=== PATIENT | female | born 1980 | race Two or more races ===

== ENCOUNTER 2025-01-23 06:07 | Inpatient (IN) | payer MEDICARE, MEDICAID ==
[2025-01-19 10:53] LABS: Urine Bacteria None Seen /hpf (None Seen)
[2025-01-19 11:01] LABS: Basophils # (auto) 0.1 10 ^3/uL (0-0.2); Basophils % (auto) 0.6 % (0.0-2.0); Eosinophils # (auto) 0.3 10 ^3/uL (0-0.8); Eosinophils % (auto) 2.7 % (0.0-7.0); Hematocrit 39.7 % (36.0-46.0); Hemoglobin 13.4 g/dL (12.2-16.2); Lymphocytes # (auto) 1.9 10 ^3/uL (0.4-5.4); Lymphocytes % (auto) 20.1 % (10.0-50.0); Mean Corpuscular Hemoglobin 30.9 pg (28.0-32.0); Mean Corpuscular Hgb Conc. 33.7 g/dL (32.0-36.0); Mean Corpuscular Volume 91.7 fL (80.0-100.0); Monocytes # (auto) 0.5 10 ^3/uL (0-1.3); Monocytes % (auto) 5.7 % (0.0-12.0); Neutrophils # (auto) 6.7 10 ^3/uL (1.6-8.6); Neutrophils % (auto) 70.9 % (37.0-80.0); Platelet Count (auto) 290 10^3/uL (140-450); Red Blood Cells 4.33 10^6/uL (4.0-5.20); Red Cell Distribution Width 12.8 % (11.8-14.3); White Blood Cell 9.4 10^3/uL (4.4-10.8)
[2025-01-19 11:11] LABS: Urine Blood Negative /uL (Negative); Urine Clarity Clear (Clear); Urine Color Light-Yellow (Yellow); Urine Protein, UAD Negative (Negative); Urine Specific Gravity 1.019 (1.001-1.035); Urine Squamous Epithelial Cell None Seen /hpf (<5); Urine Urobilinogen Normal (Negative); Urine WBC < 1 /HPF (0-5)
[2025-01-19 11:14] LABS: INR 0.98 (0.9-1.15); Partial Thromboplastin Time 26.8 SEC (24.5-34.5); Prothrombin Time 10.4 sec (9.3-11.8)
[2025-01-19 11:27] LABS: Alkaline Phosphatase 67 U/L (46-116); Anion Gap 10 (5-15); Aspartate Aminotransferase 15 U/L (<34); BUN/Creatinine Ratio 14.1 (10.0-20.0); Bilirubin, Total 0.6 mg/dL (0.2-1.0); Blood Urea Nitrogen 11 mg/dL (9-23); Calcium 10.4 mg/dL (8.7-10.4); Carbon Dioxide 27 mmol/L (20-31); Chloride 106 mmol/L (98-107); Glucose 99 mg/dL (74-106); Potassium 4.1 mmol/L (3.5-5.1); Sodium 143 mmol/L (136-145); Total Protein 8.1 g/dL (5.7-8.2)
[2025-01-19 11:28] LABS: Alanine Aminotransferase < 9 U/L (7-40); Albumin 4.9 g/dL (3.2-4.8)
[~2025-01-23] VITALS: Ht 167.6 cm; Wt 101.2 kg
[~2025-01-23 06:07] MED LIST: ACET-1304 PO; HYDR-4491 OR
[2025-01-23] MEDS: ceFAZolin 2 GM/D5W50ml 50 ML IV ONE (06:12)
[2025-01-23] MEDS ORDERED: HYDROmorphone HCL 2 MG/ML VL/or syr ONE (06:35)
[2025-01-23] MEDS ORDERED: ONDANSETRON HCL 4 MG/2 ML VIAL ONE (06:35)
[2025-01-23] MEDS ORDERED: KETAMINE 50mg/ML 1ml syringe ONE (06:35)
[2025-01-23] MEDS ORDERED: LIDOCAINE 2% TOPICAL JELLY 5 ML URJT TOP ONE (06:35)
[2025-01-23] MEDS ORDERED: LIDOCAINE 1% INJ PF 5ML AMP ONE (06:35)
[2025-01-23] MEDS ORDERED: MIDAZOLAM HCL 2MG/2ML 2ml VIAL (1mg/ml) ONE (06:35)
[2025-01-23] MEDS ORDERED: EPINEPHrine HCL 1 MG/1 ML AMP ONE (06:35)
[2025-01-23] MEDS ORDERED: ROCURONIUM 10MG/ML 10ML VIAL IV ONE (06:35)
[2025-01-23] MEDS ORDERED: PROPOFOL 10 MG/ML 20 ML IV ONE ×3 (06:35→12:49)
[2025-01-23] MEDS ORDERED: fentaNYL CITRATE 100 MCG/2 ML VL ONE (06:35)
[2025-01-23] MEDS ORDERED: SODIUM CHLORIDE LOCK 50 ML ONE (06:35)
[2025-01-23] MEDS ORDERED: fentaNYL CITRATE 5 ML ONE ×2 (06:35→09:21)
[2025-01-23] MEDS: TRANEXAMIC ACID 20 ML ONE (06:53)
[2025-01-23] MEDS: levoFLOXacin 500MG 100 ML IV ONE (06:53)
[2025-01-23] MEDS ORDERED: MORPHINE SULFATE 4 MG/ML SYR/VIAL IV PRN (07:00)
[2025-01-23] MEDS ORDERED: HYDROmorphone HCL 2 MG/ML VL/or syr IV PRN (07:00)
--- NOTE | 2025-01-23 07:05 | DVHHP2 ---
History Allergies: Coded Allergies: NO KNOWN ALLERGIES (Unverified , 01/17/25) Chief Complaint: Patient complains of classic cervical stenosis symptoms including weekends, dropping items, having to shake her hands out while she drives. Headaches that are located behind her ears initially her shoulder pain started out as left shoulder pain and has progressively gotten worse now her right shoulder action hurts worse than her left shoulder. Two weeks ago she developed left hip pain and weakness and neuropathies to her left leg down to her foot making it difficult to walk. Patient arrives today for elective surgery with Dr Juan Barry cervical 4-7 anterior cervical diskectomy and fusion The risks/benefits/alternatives of surgery were explained to the patient in detail by Dr Juan Barry in her preop office visit, discussion included , stroke, paralysis, myocardial infarction, bleeding, infection, complications of anesthesia (dry mouth, sore throat, dental damage, respiratory depression, blindness), postoperative infection, incomplete relief of symptoms, recurrence of symptoms, damage to blood vessels, nerves and tendons, pulmonary embolism and possible need for repeat surgery in the future. Pain, damage to surrounding soft tissue structures, need for reoperation or future surgery, persistent pain/disability/deformity, bone graft collapse or extrusion of interbody device, instrumentation failure, need for instrumentation removal, dural tear, temporary or permanent nerve root damage, deep vein thrombosis, pulmonary embolism, were described to the patient in detail and the patient wishes to proceed. No guarantee of surgical outcome/improvement was implied. All of the questions were answered thoroughly and consents were obtained. Call with questions Danyelle Olson [facility] Orthopaedic Spine Surgery nurse practitioner For Dr Terrance Barry Patient was examined, chart reviewed, labs evaluated, and diagnostic studies and findings analyzed. Case was discussed with Dr. Juan Barry who formulated the plan of care. This medical document was created using an electronic medical record system with [employer] dictation system. Although this document has been carefully reviewed, there might still be some phonetic and typographical errors. These areas are purely typographical due to imperfections of the software programs, and do not reflect any compromise in the patient's medical care. Present Illness(Onset/Duration Cervical stenosis present for several years worsening over the last two weeks to now include her left hip and leg Noncontributory to case Exam Exam General Appearance: None, Normal HEENT: Normal ENT Inspection Neck: Limited Range of Motion (Bilateral shoulder pain and neck pain), Normal Inspection Respiratory: No Accessory Muscle Use, No Respiratory Distress Cardiovascular: No JVD, Other (Skin is pink warm and dry) Gastrointestinal: none, Other (No complaints of nausea or vomiting) Extremities: Normal capillary refill, Normal inspection, Normal range of motion, Non-tender, Other (Weak bilateral management coordinator strength) Neurologic: Headache, Motor Weakness (4/5 bilateral hands) Cerebellar Function: Normal (Patient states no complaints at this time with ambulation) Reflexes: None (No reports of hyperreflexia or increased sensation) Skin: Normal Color IVIS OLSON NP Jan 23, 2025 07:05
--- NOTE | 2025-01-23 07:07 | POSTOP ---
Post-Operative Note Post-Operative Note Preop Diagnosis cervical spinal stenosis with severe radiculopathy Postop Diagnosis: cervical spinal stenosis with severe radiculopathy Operation performed Cervical 4-7 anterior cervical diskectomy and fusion Specimen None Anesthesia: General Anesthesiologist: Dr. Tucker Blood Loss(fluid mgmt) See anesthesia record Tourniquet Time None Surgeon Dr Juan Barry Reed Press Feeder Lashell Crespo, STEV[employer] DOCK/ PIPE TURNER Implant 7 mm spacers x3 3.5 x 12 screws x6 Complications & Mgmt None Additional Remarks Disposition: -Pending -Discharge RX: -Follow up appointment: with Dr Barry on [phone] [place] [id number] -Pain: - IV pain meds post op day 1, with PO supplementation, goal is to progress weaning off IV medications and control pain with PO only. morphine 1mg q 4 hours (PAIN 7-10) - P.O. analgesics:Tylenol 650MG (PAIN 1-3) Heyworth 10/325 mg (PAIN 4-6) - Muscle relaxers scheduled administration. This is a beneficial medications for the incisional pain as it is mostly related to muscle spasms. Flexeril 10 mg TID - Cepacol throat lozenges as needed for sore throat -DVT PPX: -Hold all chemical DVT/ blood thinners for 14 days postoperatively -use mechanical DVT PPX such as SCD's, ambulation -Antibiotics Operative recommendations: -Postoperative dose:-Post operative antibiotics cefazolin 1 g IV piggyback every 8 hours x 48 hours total of 6 doses -Activity: -Pending PT evaluation and patients progression -Sit at side of bed for meals -Goal: Ambulate independently and safely (may use assistive devices if needed) -Brace: - [place] collar for comfort, -Medical Therapy goals: -Afebrile- Patient may develop a expected post operative fever by day 2-3, this may not be accompanied with a elevation in WBC. if fever develops: Acetaminophen for fever. Albuterol nebulizer Tx every 12 hours for 24 hours to facilitate adequate lung expansion and prevent development of atelectasis. -Euglycemic: bloods sugars under 130mmol/L for optimal healing -Normotensive: Avoid events of hypertension. This helps to keep post operative healing intact and avoids destabilization of beneficial hemostatic coagulation. Drains -Bulb drains: record output and characteristics of the drainage EVERY 6 HOURS- if there is no output indicate this by documenting 0ml output in note.. These will be to thumbprint compression unless otherwise ordered. Record output as well as amount in a note at least every 6 houtrs- more if indicated. Wound drainage is described by type, color, amount, and odor. Drainage can be 1 serous: Clear and thin, may be present in healing healthy wound. 2 serosanguineous containing blood may also be present and healthy healing wound 3. Sanguinous primarily blood 4. Purulent this is thick, white, and pus like. It may be indicated to give of a infection and should constitute a call to the provider immediately with the plan that the sample should be cultured. -Padilla: -DC in OR -Dressings -Anterior cervical patients: Initial surgical dressing may be reinforced if needed. If there is excessive bleeding, leaking, drainage in the bulb drain notify provider -Bowel management: -Colace 100mg bid -Diet: -Clear liquid diet and advance as patient tolerates within dietary limitations ( example: diabetic, Cardiac) -Incentive Spirometer: -10 x hour while awake, RN please educate and observe repeat demonstration, have IS at bedside POD #1 -X-rays: - none indicated at this time -Consults: -Physical Therapy evaluation, treatment recommendations, and discharge recommendations Call with questions Danyelle Crespo ACNP- Orthopaedic Spine Surgery nurse practitioner For Dr Terrance Barry Patient was examined, chart reviewed, labs evaluated, and diagnostic studies and findings analyzed. Case was discussed with Dr. Juan Barry who formulated the plan of care. This medical document was created using an electronic medical record system with [employer] dictation system. Although this document has been carefully reviewed, there might still be some phonetic and typographical errors. These areas are purely typographical due to imperfections of the software programs, and do not reflect any compromise in the patient's medical care. Date 01/23/25 Time 07:05 LASHELL CRESPO NP Jan 23, 2025 07:07
--- NOTE | 2025-01-23 07:15 | DVHPN2 ---
Progress Note - Surgical Date Seen: Jan 24, 2025 Post op day Post op day: 1 Subjective Patient reports: No new complaints, Feels better (Patient states that her vision has drastically improved, pain for the right hip has resolved, neck and shoulder pain has resolved) Review of Systems: HEENT:Normal, HEENT:Abnormal, CVS:Normal, RESPIRATORY:Normal, GI:Normal, :Normal, MSK:Abnormal (Patient pain for the hip, right which made it difficult for her to ambulate also complain of shoulder pain neck pain), NEURO:Abnormal (Cervical radiculopathy complaints) Objective Medications Current Medications Medications Dose Ordered Sig/Giuseppe Route Start Time Stop Time Status Last Admin Dose Admin Hydromorphone HCl 0.5 mg Q10M PRN IV 01/23/25 07:00 01/23/25 07:41 Morphine Sulfate 2 mg Q4H PRN IV 01/23/25 07:00 01/23/25 11:01 Hydromorphone HCl 0.25 mg Q10M PRN IV 01/23/25 07:00 01/23/25 07:31 Morphine Sulfate 1 mg Q30M PRN IV 01/23/25 07:42 01/23/25 09:43 Laboratory Laboratory Tests 01/19/25 10:49 Test 01/19/25 10:49 Range/Units Serum Glucose 99 74-106 mg/dL Examination: GENERAL:Normal, HEENT:Normal, NECK:Normal (Left-sided surgical site closed with Steri-Strips and Monocryl suture drain functioning, minimal output in the past 24 hours since surgery drain will be removed today), LUNGS:Normal, CVS:Normal, ABDOMEN:Normal, MSK:Normal (Patient ambulated out in whole twice with physical therapy), SKIN:Normal, NEURO:Normal (Patient reports great improvement in preoperative symptoms), :Normal Problem List/Assessment/Plan Problems: (1) Cervical stenosis of spinal canal (2) Postoperative pain after spinal surgery (3) Muscle spasms of neck Assessment and Plan Events of today Drain discontinued Patient able to ambulate in the hallway twice, reports improvement in right hip and leg pain Patient reports improvement in hand strength Improvement in bilateral shoulder and neck pain Patient also states that she has a very clear vision which was surprising to her, states her vision was blurry the day of surgery and had been prior Patient is progressing to discharge -Discharge RX: Flexeril and Lockney sent to patient's preferred pharmacy -Follow up appointment: with Dr Barry on his follow up date [id number] [facility] [address] [place] [address] -Pain: - IV pain meds post op day 1, with PO supplementation, goal is to progress weaning off IV medications and control pain with PO only. morphine 1mg q 4 hours (PAIN 7-10) - P.O. analgesics:Tylenol 650MG (PAIN 1-3) Lockney 10/325 mg (PAIN 4-6) - Muscle relaxers scheduled administration. This is a beneficial medications for the incisional pain as it is mostly related to muscle spasms. Flexeril 10 mg TID - Cepacol throat lozenges as needed for sore throat -DVT PPX: -Hold all chemical DVT/ blood thinners for 14 days postoperatively -use mechanical DVT PPX such as SCD's, ambulation -Antibiotics Operative recommendations: -Postoperative dose:-Post operative antibiotics cefazolin 1 g IV piggyback every 8 hours x 48 hours total of 6 doses -Activity: -Pending PT evaluation and patients progression -Sit at side of bed for meals -Goal: Ambulate independently and safely (may use assistive devices if needed) -Brace: - [place] collar for comfort, -Medical Therapy goals: -Afebrile- Patient may develop a expected post operative fever by day 2-3, this may not be accompanied with a elevation in WBC. if fever develops: Acetaminophen for fever. Albuterol nebulizer Tx every 12 hours for 24 hours to facilitate adequate lung expansion and prevent development of atelectasis. -Euglycemic: bloods sugars under 130mmol/L for optimal healing -Normotensive: Avoid events of hypertension. This helps to keep post operative healing intact and avoids destabilization of beneficial hemostatic coagulation. -Dressings -Anterior cervical patients: Initial surgical dressing may be reinforced if needed. If there is excessive bleeding, leaking, drainage notify provider -dressing can be changed by nursing staff if needed -Bowel management: -Colace 100mg bid -Diet: -Clear liquid diet and advance as patient tolerates within dietary limitations ( example: diabetic, Cardiac) -Incentive Spirometer: -10 x hour while awake, RN please educate and observe repeat demonstration, have IS at bedside POD #1 -X-rays: - none indicated at this time -Consults: -Physical Therapy evaluation, treatment recommendations, and discharge recommendations Call with questions Danyelle Olson ACNP- Orthopaedic Spine Surgery nurse practitioner For Dr Terrance Barry Patient was examined, chart reviewed, labs evaluated, and diagnostic studies and findings analyzed. Case was discussed with Dr. Juan Barry who formulated the plan of care. This medical document was created using an electronic medical record system with [employer] dictation system. Although this document has been carefully reviewed, there might still be some phonetic and typographical errors. These areas are purely typographical due to imperfections of the software programs, and do not reflect any compromise in the patient's medical care Plan discussed with Plan discussed with: Patient, Other (Dajuan RN extension [phone]) Visit Coding Surgery Date of Service if different f: Jan 23, 2025 Billing Provider: IVIS OLSON NP Surgery Visit Codes: NOT BILLABLE IVIS OLSON NP Jan 23, 2025 07:15
[2025-01-23] MEDS ORDERED: MORPHINE SULFATE INJ 2 MG/ml SYRG IV PRN ×2 (07:42→08:45)
[2025-01-23] MEDS ORDERED: ACETAMINOPHEN 325 MG TAB PO PRN (08:45)
[2025-01-23] MEDS ORDERED: ONDANSETRON HCL 4 MG/2 ML VIAL IV PRN (08:45)
[2025-01-23] MEDS ORDERED: NITROGLYCERIN 0.4 MG SL TAB SL PRN (08:45)
[2025-01-23] MEDS ORDERED: SUGAMMADEX 200mg/2ml Vial (100MG/ML) IV ONE ×2 (09:18→12:35)
--- NOTE | 2025-01-23 10:19 | DVHOP2 ---
Operative Report - 2 Report Details Date: 01/23/25 Preop Diagnosis: cervical spinal stenosis with severe radiculopathy Postop Diagnosis: same as pre op Surgeon: Juan Barry MD Dry Room Attendant: Lashell olson NP Anesthesiologist: aria Anesthesia: General Consent: The patient was informed of the risks and benefits of the procedure. These include but are not limited to complications of anesthesia, postoperative infection, incomplete relief of symptoms, recurrence of symptoms, damage to blood vessels, nerves and tendons, deep venous thrombosis, pulmonary embolism and possible need for repeat surgery in the future. Name of Procedure Performed see detailed note Procedure Details Procedure Details: Pre Op Diagnosis: Cervical Degenerative Disk Disease and Spinal Stenosis Causing incapacitating neck pain, radiculopathy and progressive neurologic deficit Post Op Diagnosis: Cervical Degenerative Disk Disease and Spinal Stenosis Causing incapacitating neck pain, radiculopathy and progressive neurologic deficit Procedure: Cervical 4 to 5 anterior cervical discectomy with Cervical 4-5 foraminotomies and facetectomies to decompression the spinal canal and Cervical 5 nerve roots Cervical 5 to 6 anterior cervical discectomy with Cervical 5/6 foraminotomies and facetectomies to decompression the spinal canal and Cervical 6 nerve roots Cervical 6 to 7 anterior cervical discectomy with Cervical 6/7 foraminotomies and facetectomies to decompression the spinal canal and Cervical 7 nerve roots Cervical 4-7 anterior cervical Fusion Cervical 4-7 anterior cervical instrumentation with freestanding cages Cervical 4-5 placement of allograft prosthetic device Cervical 5-6 placement of allograft prosthetic device Cervical 6-7 placement of allograft prosthetic device Microscope for micro dissection Surgeon: Juan Barry MD Anesthesia: General Assist: Lashell Olson NP Fluids and EBL: see anesthesia note Procedure Note: The patient was seen in the Pre-anesthesia Care Unit and the site of the incision was initialed by me with a felt tipped marker. All questions by the patient were answered to the satisfaction of the patient and the chart was reviewed. The patient was taken to the operating room and placed supine on the [facility] top table. General anesthesia was induced. Neuromonitoring leads were placed. A rolled towel was placed between the shoulder blades to hyperextend out the chest which will allow better exposure of the cervical spine. Halter traction to 10 pounds was placed. The arms were padded and adducted to the patients side making sure all pulses in the hands were present. Tape traction was undertaken on the shoulders to give us better radiographic exposure of the distal cervical spine. A gel-pad was placed under the occiput and 5 degrees of extension was placed on the neck without adverse effects to the patient. The anterior neck was prepped and draped. Pre-operative antibiotics were given 30 minutes prior to the start of the procedure. A c-arm fluoroscope was used to arvin out the incision site. At this time, a time out was taken per usual protocol. Next an inscison was made through the skin with a 15 blade scalpel through the subcutaneous tissue down to the platysma. Self-retainers were placed. The platysma was incised along the longitudinal border with a Metzenbaum scissors. Blunt dissection was made through the deep cervical and pre-tracheal fascia taking care to protect the carotid sheath laterally and the Trachea/esophagus medially. The dissection was carried down to the prevertebral fascia. Any crossing vessels were ligated using a vascular clip or coagulated with a bovie. An esophageal retractor was next used to retract the trachea/esophagus and a bent [address] through the anterior annulus of the cervical disk and a lateral C-arm fluoroscopic image was taken to confirm that we were at the correct level. Next, bovie electrocautery was used to expose the bones of cervical 4,5,6, and 7 and bipolar electrocuatery was used to lift up the Longus Colli and Capitus muscles. Black-Belt Self Retainers were used to retract the longus colli and capitus muscles bilaterally as well as the trachea/esophagus to the right and the carotid sheath to the left. Smooth thin self raining retractors were placed proximally and distally and a needle was placed again in the anterior annulus of the disk and an image taken to confirm the correct level. At this point, the microscope was wheeled in and an 11 blade scalpel incised the anterior annulus of the first of the 3 levels. Next, straight and curved curettes removed the remainder of the disks all the way down to the posterior longitudinal ligament. Carefully, a Yeseniaison number one rongeur incised the posterior longitudinal ligament at the lateral end of the cervical 4/5 an 5/6 and 6/7 disks and using a micro, blunt tip nerve hook to separate the posterior longitudinal ligament from the dura, alternating 1 mm and 2 mm Kerison rongeurs removed the posterior longitudinal ligament. Next, Kerison 1mm and 2 mm rongeurs were alternated to get under the uncinate processes and undercut them to perform foraminotomies and factectomies at these levels to decompress the central canal and the cervical 5,6 and 7 nerve roots respectively. Next the microscope was wheeled away and the c-arm fluoroscope was wheeled into the field and a lateral image was obtained. Increasing size graft trials were used starting at a 5 mm thick size until the proper tension in the disk space and height worship obtained. Next we placed the free standing inter body devices at romano of the 3 levels respectively. The sizes were tailored to make sure proper tension was restored in the ligaments without over tensioning. Satisfactory placement was confirmed in the AP and lateral views using a C-arm fluoroscope. Copious irrigation of the wound with sterile saline and all bleeding was controlled before closure initiated. At this point, a [address] Sami [address] Drain was place deep to the Platysma muscle and the Platysma was approximated with one interrupted 0-Vicryl suture. The subcutaneous tissue was closed with interrupted 2-0 vicryl sutures and the skin was closed with destiny. Sterile dressings were placed and a cervical collar placed, the patient extubated, transferred to the stretcher and taken to the Recovery Room in unremarkable condition. Other Notes: cpt code: [id number] Condition Good Disposition Still a Patient JUAN BARRY MD Jan 23, 2025 10:19
[2025-01-23 10:21] VITALS: PULSE 90; RESP 15; O2SAT 97
[2025-01-23] MEDS: KETOROLAC TROMETH 30 MG/ML 1ML VIAL IV ONE (10:38)
[2025-01-23] MEDS: CYCLOBENZAPRINE HCL 10 MG TAB PO SCH (10:44)
[2025-01-23] MEDS: CYCLOBENZAPRINE HCL 10 MG TAB PO ONE (10:45)
[2025-01-23] MEDS: HYDROmorphone HCL 2 MG/ML VL/or syr ONE (11:05)
[2025-01-23] MEDS: HYDROmorphone HCL 2 MG/ML VL/or syr IV PRN (11:08)
[2025-01-23] MEDS: METOCLOPRAMIDE HCL 5MG/ml INJ 2ml VIAL IV ONE (11:23)
[2025-01-23 13:00] VITALS: BP_SYST 114; BP_SYST 123; BP_DIAS 73; BP_DIAS 82; PULSE 64; PULSE 78; RESP 17; TEMP 98.2; TEMP 98.6; O2SAT 98
[2025-01-23 13:34] VITALS: PULSE 76; RESP 18; TEMP 98; O2SAT 97
[2025-01-23] MEDS: ceFAZolin 1GM/50ML 50 ML IV SCH (14:59)
--- NOTE | 2025-01-23 15:26 | DVH ---
C-ARM FLUOROSCOPY: PROCEDURE: c4-c7 anterior discectomy FLUOROSCOPY TIME: 10 sec DAP: 0.49 mgy FINDINGS: Spot intraoperative C arm radiographs demonstrating c4-c7 anterior discectomy . IMPRESSION: Please refer to surgical report for detailed findings.
--- NOTE | 2025-01-23 15:26 | DVH ---
C-ARM FLUOROSCOPY: PROCEDURE: c4-c7 anterior discectomy FLUOROSCOPY TIME: 10 sec DAP: 0.49 mgy FINDINGS: Spot intraoperative C arm radiographs demonstrating c4-c7 anterior discectomy . IMPRESSION: Please refer to surgical report for detailed findings.
[2025-01-23 17:00] VITALS: BP 136/82; PULSE 78; RESP 19; TEMP 98.8; O2SAT 95
[2025-01-23] MEDS: D5W/SOD CHLO 0.9% 1,000 ML IV SCH (17:57)
[2025-01-23] MEDS: MORPHINE SULFATE INJ 2 MG/ml SYRG IV PRN (17:58)
[2025-01-23 21:00] VITALS: BP 135/84; PULSE 83; RESP 18; TEMP 99.3; O2SAT 91
[2025-01-23] MEDS: DOCUSATE SOD 100 MG CAP PO SCH (21:14)
[2025-01-23] MEDS: HYDROcodone-ACET 10/325MG TAB PO PRN (21:15)
[2025-01-24 01:00] VITALS: BP 126/83; PULSE 69; RESP 18; TEMP 97.5; O2SAT 97
[2025-01-24 05:00] VITALS: BP 140/87; PULSE 63; RESP 18; TEMP 98.2; O2SAT 97
[2025-01-24 09:00] VITALS: BP 125/77; PULSE 87; RESP 16; TEMP 99.3; O2SAT 97
--- NOTE | 2025-01-24 10:38 | DVHINCON2 ---
Date Seen: Jan 24, [address] ARVIZU Family History: Diabetes mellitus G8 FATHER Allergies: Coded Allergies: NO KNOWN ALLERGIES (Unverified , 01/17/25) Home Meds Reported Medications Acetaminophen (Tylenol Extra Strength) 500 Mg Tab, 500 MG PO PRN, TAB 01/17/25 Hydroxychloroquine Sulfate (PLAQUENIL) 200 Mg Tab, 200 MG OR BID, TAB 01/17/25 Current Medications Current Medications Medications (Trade) Dose Ordered Sig/Giuseppe Route PRN Reason Start Time Stop Time Status Last Admin Cyclobenzaprine HCl (Flexeril Tablet) 10 mg TID PO 01/23/25 14:00 01/24/25 05:54 Cefazolin Sodium 50 ml @ 100 mls/hr Q8HR IV 01/23/25 14:00 01/25/25 06:29 01/24/25 05:55 Vital Signs Vital Signs Date Time Temp Pulse Resp B/P (MAP) Pulse Ox O2 Delivery O2 Flow Rate FiO2 01/24/25 05:00 98.2 63 18 140/87 (104) 97 98.2 01/23/25 20:00 Room Air* 0 21 Labs/Diagnostic Data Labs Test 01/19/25 10:49 Range/Units White Blood Count 9.4 4.4-10.8 10^3/uL Red Blood Count 4.33 4.0-5.20 10^6/uL Hemoglobin 13.4 12.2-16.2 g/dL Hematocrit 39.7 36.0-46.0 % Mean Corpuscular Volume 91.7 80.0-100.0 fL Mean Corpuscular Hemoglobin 30.9 28.0-32.0 pg Mean Corpuscular Hemoglobin Concent 33.7 32.0-36.0 g/dL Red Cell Distribution Width 12.8 11.8-14.3 % Platelet Count 290 140-450 10^3/uL Mean Platelet Volume 8.2 6.9-10.8 fL Neutrophils (%) (Auto) 70.9 37.0-80.0 % Lymphocytes (%) (Auto) 20.1 10.0-50.0 % Monocytes (%) (Auto) 5.7 0.0-12.0 % Eosinophils (%) (Auto) 2.7 0.0-7.0 % Basophils (%) (Auto) 0.6 0.0-2.0 % Neutrophils # (Auto) 6.7 1.6-8.6 10 ^3/uL Lymphocytes # (Auto) 1.9 0.4-5.4 10 ^3/uL Monocytes # (Auto) 0.5 0-1.3 10 ^3/uL Eosinophils # (Auto) 0.3 0-0.8 10 ^3/uL Basophils # (Auto) 0.1 0-0.2 10 ^3/uL Nucleated Red Blood Cells 0.0 % Prothrombin Time 10.4 9.3-11.8 sec Prothrombin Time INR 0.98 0.9-1.15 Activated Partial Thromboplast Time 26.8 24.5-34.5 SEC Urine Color Light-yellow Yellow Urine Clarity Clear Clear Urine pH 6.0 5.0-9.0 Urine Specific [place] 1.019 1.001-1.035 Urine Protein Negative Negative Urine Ketones Negative Negative Urine Blood Negative Negative /uL Urine Nitrite Negative Negative Urine Bilirubin Negative Negative Urine Urobilinogen Normal Negative mg/dL Urine Leukocyte Esterase Negative Negative /uL Urine RBC 1 0 - 4 /hpf Urine Microscopic WBC < 1 0-5 /HPF Urine Squamous Epithelial Cells None seen <5 /hpf Urine Bacteria None seen None Seen /hpf Urine Glucose Normal Normal mg/dL Urine Test Negative Negative Sodium Level 143 136-145 mmol/L Potassium Level 4.1 3.5-5.1 mmol/L Chloride Level 106 98-107 mmol/L Carbon Dioxide Level 27 20-31 mmol/L Anion Gap 10 5-15 Blood Urea Nitrogen 11 9-23 mg/dL Creatinine 0.78 0.550-1.02 mg/dL Glomerular Filtration Rate Calc 95 >90 mL/min BUN/Creatinine Ratio 14.1 10.0-20.0 Serum Glucose 99 74-106 mg/dL Calcium Level 10.4 8.7-10.4 mg/dL Total Bilirubin 0.6 0.2-1.0 mg/dL Aspartate Amino Transferase (AST) 15 <34 U/L Alanine Aminotransferase (ALT) < 9 7-40 U/L Alkaline Phosphatase 67 46-116 U/L Total Protein 8.1 5.7-8.2 g/dL Albumin 4.9 H 3.2-4.8 g/dL Assessment SEE DICTATED NOTE Plan discussed with: Patient Date of Service: Jan 24, 2025 Billing Provider: CRISTÓBAL ELIZABETH MD Common Visit Codes: [id number] INP/OBS CARE (HIGH) Secondary Visit Codes: 98424-[id number] CARE PLAN 30 MINUTES CRISTÓBAL ELIZABETH MD Jan 24, 2025 10:38
[2025-01-24] MEDS: hydrOXYchloroQUINE SULFATE 200 MG TAB PO ONE (12:04)
[2025-01-24 13:00] VITALS: BP 126/86; PULSE 86; RESP 17; TEMP 99.3; O2SAT 95
--- NOTE | 2025-01-24 15:03 | DVHINCON2 ---
DATE OF CONSULTATION: 01/24/2025 INTERNAL MEDICINE CONSULT HISTORY OF PRESENT ILLNESS: The patient is a 44-year-old lady who was admitted after she underwent cervical spine surgery for cervical stenosis. The patient at this time complains of pain in the neck. The patient, however, says she has had improved vision ever since the surgery. The patient denies any shortness of breath, no chest pain, no nausea or vomiting. REVIEW OF SYSTEMS: Review of rest of the other systems is currently negative. PAST MEDICAL HISTORY: Significant for lupus/rheumatoid arthritis. MEDICATIONS: She takes Plaquenil 200 mg b.i.d.. ALLERGIES: No known drug allergies. SOCIAL HISTORY: Denies smoking or alcohol. Lives at home with her . FAMILY HISTORY: Negative. PHYSICAL EXAMINATION: GENERAL: The patient is awake, alert. VITAL SIGNS: Temperature 97.5, pulse 80 per minute, blood pressure 130/79. SHEENT: Unremarkable. NECK: There is no JVD, no pedal edema. LUNGS: Equal bilaterally. No added sounds. CARDIOVASCULAR: S1 and S2 is regular without murmurs. ABDOMEN: Soft. There is no organomegaly. NEUROLOGIC: Nonfocal. MUSCULOSKELETAL: There is a dressing at the site of cervical spine surgery with a drain in place. ASSESSMENT AND PLAN: * Lupus/rheumatoid arthritis for which the patient will continue on Plaquenil. * Obesity. * Status post cervical spine surgery for cervical stenosis for which she will be placed on pain medications and receive physical therapy. * Advance care planning, the patient is a full code-Time spent was 18 minutes. MD JIGAR Melendez/DANIAL TID: [id number] RECEIPT: [id number] [facility]
[2025-01-24] MEDS ORDERED: CYCL-611 PO (15:20)
[2025-01-24] MEDS ORDERED: HYDR-4798 PO (15:20)
--- NOTE | 2025-01-24 15:24 | DVHDS2 ---
ASSESSMENT ASSESSMENT Hospital Course The patient arrived for a elective spine surgery with Dr. BARRY. Surgery went as planned with no complications. After a short stay in the PACU patient was admitted to the hospital for postoperative care and pain management over the course of 2 postoperative days the patient was able to tolerate a diet, ambulate independently, the pain has been managed with oral analgesics. The surgical site is well-approximated with sutures, some residual drainage continues from drain insertion sites after removal, however it is manageable with daily wound care and dressing changes. Some improvement to preoperative symptoms of extremities, strength and motion. There is new post operative pain that is localized to the surgical site. The patient will follow-up with Dr. Barry for wound check and suture check or staple removal. The patient may use [place] J collar for comfort and while mobilizing. Assessment cervical spinal stenosis with severe radiculopathy Problems: (1) Muscle spasms of neck Assessments: Flexeril 10 mg q.8 hours sent to pharmacy (2) Postoperative pain after spinal surgery Assessments: [place] 10/325 p.o. Q 6 hours sent to pharmacy IVIS CRESPO NP Jan 24, 2025 15:24
[2025-01-24] MEDS: DexAMETHasone SOD PHOS 10MG/1ML VIAL INJ IV ONE (16:07)
[2025-01-24 17:00] VITALS: BP 113/77; PULSE 91; RESP 16; TEMP 98.3; O2SAT 95
[2025-01-24] MEDS: THROAT LOZENGES(CEPASTAT) MT PRN (18:13)
[2025-01-24] MEDS: HYDROcodone-ACET 10/325MG TAB PO PRN (18:13)
[2025-01-24 21:00] VITALS: BP 126/84; PULSE 83; RESP 20; TEMP 97.7; O2SAT 94
[2025-01-24] MEDS: hydrOXYchloroQUINE SULFATE 200 MG TAB PO SCH (21:17)
[2025-01-25] VITALS (7 sets, daily range): BP systolic 121–134; BP diastolic 83–91; PULSE 72–94; RESP 16–22; TEMP 97.1–98; O2SAT 97–98
[2025-01-25 06:54] LABS: Basophils # (auto) 0 10 ^3/uL (0-0.2); Basophils % (auto) 0.1 % (0.0-2.0); Eosinophils # (auto) 0 10 ^3/uL (0-0.8); Eosinophils % (auto) 0.1 % (0.0-7.0); Hematocrit 34.7 % (36.0-46.0); Lymphocytes # (auto) 1.9 10 ^3/uL (0.4-5.4); Lymphocytes % (auto) 20.4 % (10.0-50.0); Mean Corpuscular Hemoglobin 31.5 pg (28.0-32.0); Mean Corpuscular Hgb Conc. 34.6 g/dL (32.0-36.0); Mean Corpuscular Volume 91.1 fL (80.0-100.0); Monocytes # (auto) 0.5 10 ^3/uL (0-1.3); Monocytes % (auto) 5.6 % (0.0-12.0); Neutrophils # (auto) 6.9 10 ^3/uL (1.6-8.6); Neutrophils % (auto) 73.8 % (37.0-80.0); Nucleated Red Blood Cells % 0.1 %; Platelet Count (auto) 246 10^3/uL (140-450); Red Blood Cells 3.81 10^6/uL (4.0-5.20); Red Cell Distribution Width 12.6 % (11.8-14.3); White Blood Cell 9.4 10^3/uL (4.4-10.8)
[2025-01-25] MEDS ORDERED: DOCU-265 PO (07:52)
--- NOTE | 2025-01-25 10:40 | DVHPN2 ---
Progress Note Date Seen: Jan 25, 2025 Medical Necessity Reason Pt with a Central, PICC or Fol: No Subjective Patient reports: No new complaints Review of Systems: HEENT:Normal, CVS:Normal, RESPIRATORY:Normal, GI:Normal, :Normal, MSK:Normal, NEURO:Normal Objective vital signs Vital Sign Date Time Temp Pulse Resp B/P (MAP) Pulse Ox O2 Delivery O2 Flow Rate FiO2 01/25/25 05:00 97.1 72 18 134/88 (103) 97 97.1 01/24/25 20:00 Room Air* 0 21 Total Intake and Output 01/24/25 01/24/25 01/25/25 15:00 23:00 07:00 Intake Total 600 ml 1350 ml Output Total 900 ml Balance 600 ml 450 ml medications Current Medications Medications Dose Ordered Sig/Giuseppe Route Start Time Stop Time Status Last Admin Dose Admin Dextrose/Sodium Chloride 1,000 ml @ 100 mls/hr Q10H IV 01/23/25 08:45 01/25/25 02:12 100 MLS/HR Ondansetron HCl 4 mg Q4HP PRN IV 01/23/25 08:45 Acetaminophen 650 mg Q6HP PRN PO 01/23/25 08:45 Morphine Sulfate 1 mg Q4HP PRN IV 01/23/25 08:45 01/24/25 15:58 1 MG Cyclobenzaprine HCl 10 mg TID PO 01/23/25 14:00 01/25/25 05:36 10 MG Docusate Sodium 100 mg BID PO 01/23/25 10:00 01/24/25 21:17 100 MG Nitroglycerin 0.4 mg Q5MINP PRN SL 01/23/25 08:45 Morphine Sulfate 2 mg Q30M PRN IV 01/23/25 08:45 Hydroxychloroquine Sulfate 200 mg BID PO 01/24/25 22:00 01/24/25 21:17 200 MG Acetaminophen/ Hydrocodone Bitart 1 tab Q4HPRN PRN PO 01/24/25 15:30 01/25/25 04:40 1 TAB Throat Lozenges 1 poncho Q2HP PRN MT 01/24/25 15:30 01/25/25 09:14 1 PONCHO Examination: GENERAL:Normal, HEENT:Normal, NECK:Normal, LUNGS:Normal, CVS:Normal, ABDOMEN:Normal, MSK:Normal, MSK:Abnormal (neck dressing), SKIN:Normal, NEURO:Normal, :Normal laboratory and microbiology Laboratory Tests 01/25/25 06:13 01/19/25 10:49 Test 01/19/25 10:49 Range/Units Serum Glucose 99 74-106 mg/dL Problem List/Assessment/Plan Problem List/Assessment/Plan * Lupus/rheumatoid arthritis for which the patient will continue on Plaquenil. * Obesity. * Status post cervical spine surgery for cervical stenosis for which she will be placed on pain medications and receive physical therapy. * Advance care planning, the patient is a full code-Time spent was 18 minutes. Plan discussed with: Patient My Orders My Orders Orders - CRISTÓBAL ELIZABETH MD Procedure Category Date Status Time Mechanical Soft Diet DIET 01/24/25 Transmitted Lunch Date of Service: Jan 25, 2025 Billing Provider: CRISTÓBAL ELIZABETH MD Common Visit Codes: [id number] INP/OBS CARE(HIGH) Secondary Visit Codes: [id number] CARE PLAN 30 MINUTES CRISTÓBAL ELIZABETH MD Jan 25, 2025 10:39
--- NOTE | 2025-01-25 11:41 | DVHPN2 ---
Progress Note - Surgical Date Seen: Jan 25, 2025 Post op day Post op day: 2 Subjective Patient reports: No new complaints, Feels better Review of Systems: HEENT:Normal, CVS:Normal, RESPIRATORY:Normal, GI:Normal, :Normal, MSK:Abnormal (paient had shoulder and neck pain, right hip leg pain), NEURO:Abnormal (cervical radiculopathies) Objective Vital signs Vital Sign Date Time Temp Pulse Resp B/P (MAP) Pulse Ox O2 Delivery O2 Flow Rate FiO2 01/25/25 09:00 97.9 94 22 129/83 (98) 98 97.9 01/24/25 20:00 Room Air* 0 21 Total Intake and Output 01/24/25 01/24/25 01/25/25 15:00 23:00 07:00 Intake Total 600 ml 1350 ml Output Total 900 ml Balance 600 ml 450 ml Medications Current Medications Medications Dose Ordered Sig/Giuseppe Route Start Time Stop Time Status Last Admin Dose Admin Dextrose/Sodium Chloride 1,000 ml @ 100 mls/hr Q10H IV 01/23/25 08:45 01/25/25 10:45 100 MLS/HR Ondansetron HCl 4 mg Q4HP PRN IV 01/23/25 08:45 Acetaminophen 650 mg Q6HP PRN PO 01/23/25 08:45 Morphine Sulfate 1 mg Q4HP PRN IV 01/23/25 08:45 01/24/25 15:58 1 MG Cyclobenzaprine HCl 10 mg TID PO 01/23/25 14:00 01/25/25 05:36 10 MG Docusate Sodium 100 mg BID PO 01/23/25 10:00 01/25/25 10:45 100 MG Nitroglycerin 0.4 mg Q5MINP PRN SL 01/23/25 08:45 Morphine Sulfate 2 mg Q30M PRN IV 01/23/25 08:45 Hydroxychloroquine Sulfate 200 mg BID PO 01/24/25 22:00 01/25/25 10:45 200 MG Acetaminophen/ Hydrocodone Bitart 1 tab Q4HPRN PRN PO 01/24/25 15:30 01/25/25 04:40 1 TAB Throat Lozenges 1 poncho Q2HP PRN MT 01/24/25 15:30 01/25/25 09:14 1 PONCHO Laboratory Laboratory Tests 01/25/25 06:13 01/19/25 10:49 Test 01/19/25 10:49 Range/Units Serum Glucose 99 74-106 mg/dL Examination: GENERAL:Normal, HEENT:Normal, NECK:Normal (improved sore throat), LUNGS:Normal, CVS:Normal, ABDOMEN:Normal, MSK:Normal, SKIN:Normal, NEURO:Normal (patient verbalized improved in all preoperative symptoms), :Normal Problem List/Assessment/Plan Problems: (1) Muscle spasms of neck (2) Postoperative pain after spinal surgery Assessment and Plan Events of today improved sore throat, able to tolerate solid food ambulation improving Patient reports improvement in hand strength Improvement in bilateral shoulder and neck pain Patient is progressing to discharge, tonight or tomorrow morning waiting recliner chair for sleeping -Discharge RX: Flexeril and Potter sent to patient's preferred pharmacy -Follow up appointment: with Dr Barry on his follow up date [id number] [facility] [address] [place] [id number] -Pain: - IV pain meds post op day 1, with PO supplementation, goal is to progress weaning off IV medications and control pain with PO only. morphine 1mg q 4 hours (PAIN 7-10) - P.O. analgesics:Tylenol 650MG (PAIN 1-3) Potter 10/325 mg (PAIN 4-6) - Muscle relaxers scheduled administration. This is a beneficial medications for the incisional pain as it is mostly related to muscle spasms. Flexeril 10 mg TID - Cepacol throat lozenges as needed for sore throat -DVT PPX: -Hold all chemical DVT/ blood thinners for 14 days postoperatively -use mechanical DVT PPX such as SCD's, ambulation -Antibiotics Operative recommendations: -Postoperative dose:-Post operative antibiotics cefazolin 1 g IV piggyback every 8 hours x 48 hours total of 6 doses -Activity: -Pending PT evaluation and patients progression -Sit at side of bed for meals -Goal: Ambulate independently and safely (may use assistive devices if needed) -Brace: - [place] collar for comfort, -Medical Therapy goals: -Afebrile- Patient may develop a expected post operative fever by day 2-3, this may not be accompanied with a elevation in WBC. if fever develops: Acetaminophen for fever. Albuterol nebulizer Tx every 12 hours for 24 hours to facilitate adequate lung expansion and prevent development of atelectasis. -Euglycemic: bloods sugars under 130mmol/L for optimal healing -Normotensive: Avoid events of hypertension. This helps to keep post operative healing intact and avoids destabilization of beneficial hemostatic coagulation. -Dressings -Anterior cervical patients: Initial surgical dressing may be reinforced if needed. If there is excessive bleeding, leaking, drainage notify provider -dressing can be changed by nursing staff if needed -Bowel management: -Colace 100mg bid -Diet: -Clear liquid diet and advance as patient tolerates within dietary limitations ( example: diabetic, Cardiac) -Incentive Spirometer: -10 x hour while awake, RN please educate and observe repeat demonstration, have IS at bedside POD #1 -X-rays: - none indicated at this time -Consults: -Physical Therapy evaluation, treatment recommendations, and discharge recommendations Call with questions Danyelle Crespo [facility]- Orthopaedic Spine Surgery nurse practitioner For Dr Terrance Barry Patient was examined, chart reviewed, labs evaluated, and diagnostic studies and findings analyzed. Case was discussed with Dr. Juan Barry who formulated the plan of care. This medical document was created using an electronic medical record system with [employer] dictation system. Although this document has been carefully reviewed, there might still be some phonetic and typographical errors. These areas are purely typographical due to imperfections of the software programs, and do not reflect any compromise in the patient's medical care My Orders My Orders Orders - IVIS CRESPO NP Procedure Category Date Status Time Hydrocodone-Acet PHA 01/24/25 In Process 10/325mg Tab (Potter 15:30 Throat Lozenges PHA 01/24/25 In Process (Cepastat Lozenges) 15:30 Communication Order ORDERS 01/24/25 Transmitted 15:42 Discharge DISCHARGE 01/25/25 Transmitted 07:52 Dexamethasone PHA 01/25/25 Logged Injection (Decadron 11:45 Plan discussed with Plan discussed with: Patient, Other (Ashlyn ADEN) Visit Coding Surgery Date of Service if different f: Jan 23, 2025 Billing Provider: IVIS CRESPO NP Surgery Visit Codes: NOT BILLABLE IVIS CRESPO NP Jan 25, 2025 11:41
[2025-01-25] MEDS: DexAMETHasone SOD PHOS 10MG/1ML VIAL INJ IV ONE (13:47)
[2025-01-26 01:00] VITALS: BP 139/84; PULSE 76; RESP 17; TEMP 97.9; O2SAT 95
[2025-01-26 05:00] VITALS: BP 136/90; PULSE 68; RESP 18; TEMP 97.4; O2SAT 95
[2025-01-26 07:53] VITALS: RESP 16
[2025-01-26 09:00] VITALS: BP 133/89; PULSE 67; RESP 17; TEMP 97.7; O2SAT 98
--- NOTE | 2025-01-26 12:49 | DVHPN2 ---
Subjective pain is controlled/states even vision is better Changes from previous H/P or p: No Changes Objective Vitals Vital Signs Date Time Temp Pulse Resp B/P (MAP) Pulse Ox O2 Delivery O2 Flow Rate FiO2 01/26/25 09:00 97.7 67 17 133/89 (104) 98 97.7 01/26/25 07:53 Room Air* 0 21 Intake/Output Intake and Output 01/26/25 07:00 Intake Total 2610 ml Output Total 2400 ml Balance 210 ml Intake Oral 1960 ml IV Total 650 ml Output Urine Total 2400 ml General Appearance: Alert, Oriented X3, Cooperative, No acute distress Lungs: Clear to auscultation Cardiovascular: Regular rate, Normal S1, Normal S2 Abdomen: Normal bowel sounds, Soft, No tenderness Musculoskeletal: Normal sensory function, Normal motor function Psych/Mental Status: Mental status NL, Mood NL Medications Current Medications Medications Dose Ordered Sig/Giuseppe Route Start Time Stop Time Status Last Admin Dose Admin Ondansetron HCl 4 mg Q4HP PRN IV 01/23/25 08:45 Acetaminophen 650 mg Q6HP PRN PO 01/23/25 08:45 Morphine Sulfate 1 mg Q4HP PRN IV 01/23/25 08:45 01/24/25 15:58 1 MG Cyclobenzaprine HCl 10 mg TID PO 01/23/25 14:00 01/26/25 05:16 10 MG Docusate Sodium 100 mg BID PO 01/23/25 10:00 01/26/25 09:25 100 MG Nitroglycerin 0.4 mg Q5MINP PRN SL 01/23/25 08:45 Morphine Sulfate 2 mg Q30M PRN IV 01/23/25 08:45 Hydroxychloroquine Sulfate 200 mg BID PO 01/24/25 22:00 01/26/25 09:25 200 MG Acetaminophen/ Hydrocodone Bitart 1 tab Q4HPRN PRN PO 01/24/25 15:30 01/26/25 11:07 1 TAB Throat Lozenges 1 poncho Q2HP PRN MT 01/24/25 15:30 01/26/25 04:23 1 PONCHO Laboratory Results Laboratory Tests 01/19/25 10:49 01/25/25 06:13 Urinalysis Test 01/19/25 10:49 Urine Color Light-yellow (Yellow) Urine Clarity Clear (Clear) Urine pH 6.0 (5.0-9.0) Urine Specific [place] 1.019 (1.001-1.035) Urine Protein Negative (Negative) Urine Ketones Negative (Negative) Urine Blood Negative /uL (Negative) Urine Nitrite Negative (Negative) Urine Bilirubin Negative (Negative) Urine Urobilinogen Normal mg/dL (Negative) Urine Leukocyte Esterase Negative /uL (Negative) Urine RBC 1 /hpf (0 - 4) Urine Microscopic WBC < 1 /HPF (0-5) Urine Squamous Epithelial Cells None seen /hpf (<5) Urine Bacteria None seen /hpf (None Seen) Urine Glucose Normal mg/dL (Normal) Urine Test Negative (Negative) Labs and/or images reviewed: Labs reviewed by me Assessment/Plan Assessment/Plan s/p cervical spine surgery for cervical spine stenosis h/o sle on plaquenil ambulatory status constipation from narcotics treat ortho has already arranged for dme and dc needs/instructions Plan discussed with: Patient, Other Date of Service: Jan 26, 2025 Billing Provider: RAIZA LYLE MD Common Visit Codes: [id number] INP/OBS CARE(MOD) RAIZA LYLE MD Jan 26, 2025 12:49
[2025-01-26 13:00] VITALS: BP 135/84; PULSE 72; RESP 16; TEMP 97.7; O2SAT 97
[2025-01-26] MEDS: DOCUSATE SOD 100 MG CAP PO ONE (13:26)
--- NOTE | 2025-01-26 14:43 | DVHDS2 ---
Discharge Summary Date of Admission Jan 23, 2025 at 08:37 Date of Discharge: Jan 26, 2025 Admitting Diagnosis Cervical Degenerative Disk Disease and Spinal Stenosis Causing incapacitating neck pain, radiculopathy and progressive neurologic deficit Wounds: Left anterior neck wound edges well approximated destiny in place drain site healing no further drainage Labs/Diagnostic Data: Laboratory Results Test 01/25/25 06:13 01/19/25 10:49 White Blood Count 9.4 10^3/uL (4.4-10.8) Red Blood Count 3.81 10^6/uL (4.0-5.20) Hemoglobin 12.0 g/dL (12.2-16.2) Hematocrit 34.7 % (36.0-46.0) Mean Corpuscular Volume 91.1 fL (80.0-100.0) Mean Corpuscular Hemoglobin 31.5 pg (28.0-32.0) Mean Corpuscular Hemoglobin Concent 34.6 g/dL (32.0-36.0) Red Cell Distribution Width 12.6 % (11.8-14.3) Platelet Count 246 10^3/uL (140-450) Mean Platelet Volume 8.5 fL (6.9-10.8) Neutrophils (%) (Auto) 73.8 % (37.0-80.0) Lymphocytes (%) (Auto) 20.4 % (10.0-50.0) Monocytes (%) (Auto) 5.6 % (0.0-12.0) Eosinophils (%) (Auto) 0.1 % (0.0-7.0) Basophils (%) (Auto) 0.1 % (0.0-2.0) Neutrophils # (Auto) 6.9 10 ^3/uL (1.6-8.6) Lymphocytes # (Auto) 1.9 10 ^3/uL (0.4-5.4) Monocytes # (Auto) 0.5 10 ^3/uL (0-1.3) Eosinophils # (Auto) 0 10 ^3/uL (0-0.8) Basophils # (Auto) 0 10 ^3/uL (0-0.2) Nucleated Red Blood Cells 0.1 % C-Reactive Protein High Sensitivity 1.24 mg/dL (<1.0) Prothrombin Time 10.4 sec (9.3-11.8) Prothrombin Time INR 0.98 (0.9-1.15) Activated Partial Thromboplast Time 26.8 SEC (24.5-34.5) Urine Color Light-yellow (Yellow) Urine Clarity Clear (Clear) Urine pH 6.0 (5.0-9.0) Urine Specific [place] 1.019 (1.001-1.035) Urine Protein Negative (Negative) Urine Ketones Negative (Negative) Urine Blood Negative /uL (Negative) Urine Nitrite Negative (Negative) Urine Bilirubin Negative (Negative) Urine Urobilinogen Normal mg/dL (Negative) Urine Leukocyte Esterase Negative /uL (Negative) Urine RBC 1 /hpf (0 - 4) Urine Microscopic WBC < 1 /HPF (0-5) Urine Squamous Epithelial Cells None seen /hpf (<5) Urine Bacteria None seen /hpf (None Seen) Urine Glucose Normal mg/dL (Normal) Urine Test Negative (Negative) Sodium Level 143 mmol/L (136-145) Potassium Level 4.1 mmol/L (3.5-5.1) Chloride Level 106 mmol/L (98-107) Carbon Dioxide Level 27 mmol/L (20-31) Anion Gap 10 (5-15) Blood Urea Nitrogen 11 mg/dL (9-23) Creatinine 0.78 mg/dL (0.550-1.02) Glomerular Filtration Rate Calc 95 mL/min (>90) BUN/Creatinine Ratio 14.1 (10.0-20.0) Serum Glucose 99 mg/dL (74-106) Calcium Level 10.4 mg/dL (8.7-10.4) Total Bilirubin 0.6 mg/dL (0.2-1.0) Aspartate Amino Transferase (AST) 15 U/L (<34) Alanine Aminotransferase (ALT) < 9 U/L (7-40) Alkaline Phosphatase 67 U/L (46-116) Total Protein 8.1 g/dL (5.7-8.2) Albumin 4.9 g/dL (3.2-4.8) Other Laboratory Tests 01/25/25 06:13 01/19/25 10:49 Brief Hx & Hospital Course: The patient arrived for a elective spine surgery with Dr. BARRY. Surgery went as planned with no complications. After a short stay in the PACU patient was admitted to the hospital for postoperative care and pain management over the course of 2 postoperative days the patient was able to tolerate a diet, ambulate independently, the pain has been managed with oral analgesics. The surgical site is well-approximated with sutures, some residual drainage continues from drain insertion sites after removal, however it is manageable with daily wound care and dressing changes. Some improvement to preoperative symptoms of extremities, strength and motion. There is new post operative pain that is localized to the surgical site. The patient will follow-up with Dr. Barry for wound check and suture check or staple removal. The patient may use [place] J collar for comfort and while mobilizing. Operations or Procedures Cervical 4-7 anterior cervical diskectomy and fusion Condition at Discharge: Good Final Diagnosis/Problems List [place] 10/325 p.o. Q 6 hours sent to pharmacy Problems List: (1) Muscle spasms of neck Status: Acute (2) Postoperative pain after spinal surgery Status: Acute Discharge Disposition: Home with Health Services Discharge Instruct/Medications Diet: Regular Diet comment: You your regular eating habits please avoid any process excess sugars soda pops or candies Activity: No Restrictions, As Tolerated Activity comment: Continue to move your head from [id number] and up and down slowly improving your range of motion, do not force any motion, when using your pillow please make sure it sits below your shoulders and cradles your neck. Do not allow your pillow to push your head forwards or let it hang to far backward, if you lay on your side please do not let your head hang to far down or too high up we want to maintain a neutral alignment Follow Up/Referral: Please keep your follow up appointment Call [phone] for a appointment, or to change or confirm your appoinment [id number] [facility], [facility] [address] [id number] Medications: Medications sent to patient's pharmacy of choice New Medications: Cyclobenzaprine HCl (Cyclobenzaprine Hydrochlo) 10 Mg Tab 10 MG PO TID for 30 Days, #90 TAB Docusate Sodium (Docusate Sodium) 100 Mg Cap 100 MG PO BID for 30 Days, #60 CAP Hydrocodone-Acetaminophen (Hydrocodone Bitartrate/AC 10-325 mg) 1 Tab Tab 1 TAB PO Q6HP PRN for 7 Days, #28 TAB Continued Medications: Acetaminophen (Tylenol Extra Strength) 500 Mg Tab 500 MG PO PRN, TAB Hydroxychloroquine Sulfate (Plaquenil) 200 Mg Tab 200 MG OR BID, TAB Discharge Statement: "Patient was advised to return to the ER or call 911 if any headaches, dizziness, shortness of breath, chest pain, abdominal pain, bleeding, fevers, or worsening of medical condition. Patient was counseled about treatment plan, medications, possible side effects, patientverbalized understanding. All questions were answered to the best of my ability. This discharge took greater then 30 minutes in planning, reviewing documentation, counseling the patient, and discussing with other team members." ASSESSMENT ASSESSMENT Hospital Course The patient arrived for a elective spine surgery with Dr. BARRY. Surgery went as planned with no complications. After a short stay in the PACU patient was admitted to the hospital for postoperative care and pain management over the course of 2 postoperative days the patient was able to tolerate a diet, ambulate independently, the pain has been managed with oral analgesics. The surgical site is well-approximated with sutures, some residual drainage continues from drain insertion sites after removal, however it is manageable with daily wound care and dressing changes. Some improvement to preoperative symptoms of extremities, strength and motion. There is new post operative pain that is localized to the surgical site. The patient will follow-up with Dr. Barry for wound check and suture check or staple removal. The patient may use [place] J collar for comfort and while mobilizing. Assessment [place] 10/325 p.o. Q 6 hours sent to pharmacy Problems: (1) Muscle spasms of neck Assessments: Flexeril 10 mg q.8 hours sent to pharmacy (2) Postoperative pain after spinal surgery Assessments: [place] 10/325 p.o. Q 6 hours sent to pharmacy IVIS CRESPO NP Jan 26, 2025 14:43
[2025-01-26] MEDS ORDERED: DOCUSATE SOD 100 MG CAP PO SCH (22:00)
== END 2025-01-26 16:26 | disposition home health service (06) | DRG 473 ==
LOC: SUR 06:07 → OVERFLOW 08:37 → CENTRAL 13:32
PROVIDERS: ADMIT Internal Medicine; ATTEND Internal Medicine
PROC: 0RB30ZZ Excision of Cervical Vertebral Disc, Open Approach (ICD-10-PCS; 2025-01-23)
PROC: 01N10ZZ Release Cervical Nerve, Open Approach (ICD-10-PCS; 2025-01-23)
PROC: 00NW0ZZ Release Cervical Spinal Cord, Open Approach (ICD-10-PCS; 2025-01-23)
PROC: 4A11X4G Monitoring of Peripheral Nervous Electrical Activity, Intraoperative, External Approach (ICD-10-PCS; 2025-01-23)
PROC: 0RG20A0 Fusion of 2 or more Cervical Vertebral Joints with Interbody Fusion Device, Anterior Approach, Anterior Column, Open Approach (ICD-10-PCS; principal; 2025-01-23 07:47)
DX: M48.02 Spinal stenosis, cervical region (principal); M32.9 Systemic lupus erythematosus, unspecified; M06.8A Other specified rheumatoid arthritis, other specified site; E66.9 Obesity, unspecified; Z68.32 Body mass index [BMI] 32.0-32.9, adult; T40.695A Adverse effect of other narcotics, initial encounter; K59.03 Drug induced constipation; G89.18 Other acute postprocedural pain; R29.818 Other symptoms and signs involving the nervous system; M50.321 Other cervical disc degeneration at C4-C5 level; M50.322 Other cervical disc degeneration at C5-C6 level; M50.323 Other cervical disc degeneration at C6-C7 level; M54.12 Radiculopathy, cervical region; Y92.89 Other specified places as the place of occurrence of the external cause; Z83.3 Family history of diabetes mellitus
CPT/HCPCS: 36415; 72040; 76000; 80053; 81001; 81025; 85025; 85610; 85730; 86141; 86850; 86900; 86901; 97110; 97116; 97163; 97530; G0378; J0171; J1100; J1885; J1956; J2250; J2405; J2704